=== PATIENT | female | born 1975 | race Caucasian/White ===

== ENCOUNTER 2016-12-20 13:05 | Emergency (ER) | payer OTHER ==
[~2016-12-20 13:05] MED LIST: ALBUTEROL17 GM INH; LEVAQUIN PO; METHADONE PO; NORCO 7.5-3251 EACH PO; PROMETHAZINE D118 ML PO; ZOFRAN PO
[2016-12-20 13:16] LABS: INFLUENZA A NEG (NEG); INFLUENZA B NEG (NEG)
== END 2016-12-20 13:44 | disposition home or self-care (01) ==
LOC: SED 13:05
PROVIDERS: Nurse Practitioner Family
DX: J06.9 Acute upper respiratory infection, unspecified (principal); F17.210 Nicotine dependence, cigarettes, uncomplicated; Z79.899 Other long term (current) drug therapy
CPT/HCPCS: 87651; 87804; 99283

== ENCOUNTER 2017-05-20 12:29 | Emergency (ER) | payer OTHER | END 2017-05-20 13:34 | disposition home or self-care (01) | LOC: SED 12:29 | DX: L72.9 Follicular cyst of the skin and subcutaneous tissue, unspecified (principal); F17.200 Nicotine dependence, unspecified, uncomplicated; Z98.51 Tubal ligation status; Z90.710 Acquired absence of both cervix and uterus | CPT/HCPCS: 10060; 99282 ==